=== PATIENT | female | born 1990 | race Caucasian/White ===

== ENCOUNTER 2016-08-26 04:52 | Emergency (ER) | payer MEDICAID, OTHER ==
[2016-08-26 04:52] VITALS: BMI 23.4
[2016-08-26 05:08] VITALS: BP 126/74; PULSE 103; RESP 18; TEMP 98.7; O2SAT 100
--- NOTE | 2016-08-26 05:09 | ED PDOC ---
Upper Extremity Pain/Injury Time Seen by Provider: 08/26/16 04:55 Chief Complaint (Nursing): Finger,Hand,&Wrist Chief Complaint (Provider): Hand pain History Per: Patient Additional Complaint(s): PT. C/O L 5TH FINGER PAIN AFTER FALLING DOWN THE STAIRS. EDEMA AND DEFORMITY NOTED TO THE L 5TH FINGER. Past Medical History Vital Signs: Last Vital Signs Temp 98.7 F 08/26/16 05:04 Pulse 103 H 08/26/16 05:04 Resp 18 08/26/16 05:04 BP 126/74 08/26/16 05:04 Pulse Ox 100 08/26/16 05:04 - Medical History PMH: Asthma - Home Medications Home Medications: Ambulatory Orders Medication Instructions Recorded Clindamycin [Cleocin] 300 mg PO QID #40 cap 09/09/14 - Allergies Allergies/Adverse Reactions: Allergies Allergy/AdvReac Type Severity Reaction Status Date / Time FISH Allergy RASH Verified 08/26/16 05:03 - ECG O2 Sat by Pulse Oximetry: 100
--- NOTE | 2016-08-26 09:37 | RAD ---
PROCEDURE: Left Hand Radiographs. (Limited views only) HISTORY: pain s/p dall COMPARISON: None. FINDINGS: BONES: Obliquely oriented mildly displaced fracture involving the base of the 5th proximal phalanx. No definite extension into the metacarpophalangeal joint. JOINTS: No significant osteoarthritic changes. SOFT TISSUES: Surrounding soft tissue swelling. OTHER FINDINGS: None. IMPRESSION: Obliquely oriented, mildly displaced fracture involving the base of the 5th proximal phalanx.
== END 2016-08-26 06:23 | disposition home or self-care (01) ==
LOC: H.ER 04:52
DX: M79.642 Pain in left hand (principal); W10.9XXA Fall (on) (from) unspecified stairs and steps, initial encounter; Y92.89 Other specified places as the place of occurrence of the external cause